=== PATIENT | male | born 1975 | race Caucasian/White ===

== ENCOUNTER 2018-11-11 16:22 | Emergency (ER) | payer SELFPAY ==
[~2018-11-11] VITALS: Ht 175.3 cm; Wt 67.6 kg
[2018-11-11 16:27] VITALS: BP 122/77
[2018-11-11] MEDS ORDERED: DOXYCYCLINE 100MG CAPSULE PO STA (16:51)
[2018-11-11] MEDS ORDERED: LIDOcaine 1% w/epiNEPHrine 1:200,000 30ml vial IM ONE (16:55)
[2018-11-11] MEDS ORDERED: DOXY100C43 PO (17:00)
== END 2018-11-11 17:50 | disposition home or self-care (01) ==
LOC: ER 16:24
DX: L02.512 Cutaneous abscess of left hand (principal); Z79.899 Other long term (current) drug therapy
CPT/HCPCS: 26010; 99283